=== PATIENT | female | born 1960 | race Caucasian/White ===

== ENCOUNTER 2017-11-25 10:21 | Emergency (ER) | payer BC, OTHER ==
[~2017-11-25] VITALS: Ht 154.9 cm; Wt 72.6 kg
[2017-11-25] MEDS ORDERED: PRINIVIL20 M1 PO (10:44)
[2017-11-25] MEDS ORDERED: BREO ELLIPTA 11 EACH IH (10:44)
[2017-11-25] MEDS ORDERED: PROAIR HFA8.5 GM PO (10:47)
[2017-11-25] MEDS ORDERED: PROMETHAZINE/C118 ML PO ×2 (11:34→12:14)
[2017-11-25] MEDS ORDERED: DIFLUCAN200 MG PO ×2 (11:34→12:14)
[2017-11-25] MEDS ORDERED: PREDNISONE 20 M20 MG PO ×2 (11:34→12:14)
[2017-11-25] MEDS ORDERED: DOXYCYCLINE 10100 MG PO ×2 (11:34→12:14)
== END 2017-11-25 12:15 | disposition home or self-care (01) ==
LOC: ER 10:21
DX: J44.9 Chronic obstructive pulmonary disease, unspecified (principal); F17.200 Nicotine dependence, unspecified, uncomplicated; I10 Essential (primary) hypertension; F17.210 Nicotine dependence, cigarettes, uncomplicated; Z71.6 Tobacco abuse counseling

== ENCOUNTER 2017-12-22 13:44 | Emergency (ER) | payer BC, OTHER ==
[~2017-12-22] VITALS: Ht 157.5 cm; Wt 77.1 kg
[~2017-12-22 13:44] MED LIST: BREO ELLIPTA 11 EACH IH; DIFLUCAN200 MG PO; DOXYCYCLINE 10100 MG PO; PREDNISONE 20 M20 MG PO; PRINIVIL20 M1 PO; PROAIR HFA8.5 GM PO; PROMETHAZINE/C118 ML PO
[2017-12-22] MEDS ORDERED: TRAMADOL 50 MG50 MG PO (14:46)
== END 2017-12-22 15:28 | disposition home or self-care (01) ==
LOC: ER 13:44
DX: M25.462 Effusion, left knee (principal); I10 Essential (primary) hypertension; J44.9 Chronic obstructive pulmonary disease, unspecified; Z87.891 Personal history of nicotine dependence

== ENCOUNTER 2019-01-27 07:30 | Inpatient (IN) | payer BC, OTHER ==
[~2019-01-27] VITALS: Ht 154.9 cm; Wt 79.4 kg
[2019-01-27] VITALS (7 sets, daily range): BP systolic 130–188; BP diastolic 73–96
[~2019-01-27 07:30] MED LIST changes: +TRAMADOL 50 MG50 MG PO
[2019-01-27] MEDS ORDERED: AMOXIL 875 MG875 M1 PO (07:36)
[2019-01-27 07:57] LABS: HEMATOCRIT 36.5 % (37.0-47.0); HEMOGLOBIN 12.6 gm/dL (12.0-15.0); MCH 31.2 pg (26.0-34.0); MCHC 34.4 g/dL (28.0-37.0); MCV 90.8 fL (80.0-100.0); RBC 4.02 mil/uL (4.20-5.00); RDW 13.7 % (10.5-14.5); WBC 18.6 thou/uL (4.0-11.0)
[2019-01-27 08:02] LABS: BE(vivo) 3.1 mmol/L (-2 to +3); PCO2 34.4 mmHg (35.0-45.0); PO2 82.5 mmHg (80.0-100.0); pH 7.497 (7.360-7.450)
[2019-01-27 08:14] LABS: ANION GAP 11 mmol/L (7-16); BUN 27 mg/dL (7-18); CALCIUM 9.4 mg/dL (8.5-10.1); CHLORIDE 95 mmol/L (98-107); CO2 27 mmol/L (21-32); CREATININE 1.5 mg/dL (0.6-1.0); GLUCOSE 105 mg/dL (74-106); POTASSIUM 3.7 mmol/L (3.5-5.1); SODIUM 133 mmol/L (136-145)
[2019-01-27 08:22] LABS: TROPONIN-I <0.06 ng/mL (<0.06)
[2019-01-27] MEDS ORDERED: LISINOPRIL-HCT1 EAC2 PO (14:44)
[2019-01-27] MEDS ORDERED: SPIRIVA RESPIMAT4 G1 PO (14:48)
[2019-01-27] MEDS ORDERED: MOBIC15 MG PO (14:49)
[2019-01-27] MEDS ORDERED: SYMBICORT160 MCG/4. PO (14:49)
--- NOTE | 2019-01-27 18:02 | EKG ---
[place] [address] [employer] [facility] [email or web address] [address] ELECTROCARDIOGRAM REPORT Name: PATTI SHEPARD Room #: 431-P ADM IN M.R.#: [id number] ������������������ Admission: 01/27/19 ������������������ Attend Phys: Jena Martin Discharge: ������������������ Date of : 56 Report #: [id number] ����������������������������������������������������������������� [id number] THIS REPORT FOR: //name// [facility] ED Test Date: 2019-01-27 Test Time: 08:11:11 Pat Name: PATTI SHEPARD Department: Room: [facility] Gender: F Agricultural Education Instructor: david : 1960 Requested By: Sunny Andres Order Number: [id number] MD: Angelo Solorio Measurements Intervals [place] Rate: 73 P: 50 CT: 140 QRS: -3 QRSD: 92 T: 34 QT: 420 QTc: 463 Interpretive Statements Sinus rhythm Nonspecific T wave abnormality Abnormal R-wave progression, early transition No previous ECG available for comparison Electronically Signed On 01-27-2019 18:02:42 CDT by Angelo Solorio [email or web address] ��������������������������������������������� <ELECTRONICALLY SIGNED> ���������������������������������������� By: Angelo Solorio MD, [facility] ��������������������������������������������� 01/27/19 180 0 0 Angelo Solorio MD, [facility] /EPI
--- NOTE | 2019-01-27 19:57 | NUR ---
Pt arrived to floor from emergency room at 1730 in stable condition.Admission hx and education completed.Piv infiltrated and was dc'd.Warm moist pack applied to iv site.Report off to itzel dumont.
--- NOTE | 2019-01-28 03:35 | NUR ---
Assumed care of pt at 1900. Pt alert and oriented x4. Up ad vijaya. Alert and oriented x4. C/o back pain. Prn pain meds administered and pain relief obtained. No other c/o at this time. Call light within reach. Will continue to monitor.
[2019-01-28 04:55] VITALS: BP 171/100
[2019-01-28 07:21] VITALS: BP 181/107
--- NOTE | 2019-01-28 12:40 | NUR ---
ASSESSMENT-PT LIVES AT HOME WITH HER DTR, KATHY AND 2 GRANDDTRS. PT INDEPENDENT OF ADLS AND AMBULATION. PT HAS A SMALL NEBULIZER AT HOME THAT SHE USES. PT HAS NOT HAD ANY HH SERVICES. PT HAS A LEG BRACE SHE WEARS DUE TO AN ACL TEAR. PT HS 3 DTRS IN THE AREA. PT DENIES ANY DC NEEDS AT THIS TIME. FOLLOWING TO ASSIST WITH DC PLANNING.
--- NOTE | 2019-01-28 13:47 | NUR ---
REPORT GIVEN TO SENIOR SUITES NURSES. PATIENT TO MOVE TO ROOM 223. ALL BELONGINGS PACKED AND SENT WITH PATIENT.
[2019-01-28 14:20] VITALS: BP 173/82
--- NOTE | 2019-01-28 15:00 | NUR ---
RECEIVED PT FROM AND ASSUMED PT CARE. PT AWAKE,ALERT/ORIENTED X4. ROOM AIR O2. C/O HEADACHE, BUT TOO SOON FOR MEDICATION. NO IMMEDIATE NEEDS OR CONCERNS. WILL CONTINUE WITH CURRENT CARE.
[2019-01-28 19:04] VITALS: BP 132/72
--- NOTE | 2019-01-29 03:52 | NUR ---
ASSESSMENT: PT REMAIN ALERT AND ORIENT TIMES FOUR. UP AD JUMANA IN THE ROOM. C/O BACK PAIN, PRN PAIN MEDICATIONS GIVEN WITH GOOD RESULTS PER PT. FAMILY MEMBERS WERE AT THE BEDSIDE AT THE BEGINNING OF THE SHIFT. POSSIBLE DC TO HOME TODAY PER PT. VSS, AFEBRILE. GOOD PROGRESS WILL CONTINUE TO MONITOR.
[2019-01-29 08:40] VITALS: BP 144/80
[2019-01-29] MEDS ORDERED: LEVAQUIN 500 M500 M2 PO (09:06)
[2019-01-29] MEDS ORDERED: PREDNISONE 20 M20 M1 PO (09:08)
[2019-01-29] MEDS ORDERED: LIDOPATCH1 EACH TRANSDERM (09:13)
[2019-01-29 11:20] VITALS: BP 144/80
--- NOTE | 2019-01-29 11:36 | NUR ---
PT BEING D/C'D, IN W/C WITH HOSPITAL STAFF, OUT TO CAR. IV REMOVED AND ALL BELONGINGS W/PT
== END 2019-01-29 11:39 | disposition home or self-care (01) | DRG 189 ==
LOC: ER 07:30 → EROBS 08:25 → 4E 08:25 → ENTRNSPT 01-28 13:51 → EDTRNSPTSTS 01-28 13:54 → SICU 01-28 14:04
PROVIDERS: Emergency Medicine; ADMIT Hospitalist
DX: J96.00 Acute respiratory failure, unspecified whether with hypoxia or hypercapnia (principal); J44.1 Chronic obstructive pulmonary disease with (acute) exacerbation; I10 Essential (primary) hypertension; F17.210 Nicotine dependence, cigarettes, uncomplicated; Z79.899 Other long term (current) drug therapy
CPT/HCPCS: 10084; 15002